=== PATIENT | male | born 1950 | race Asian ===

== ENCOUNTER 2016-12-28 17:50 | Emergency (ER) | payer OTHER ==
[~2016-12-28] VITALS: Ht 182.9 cm; Wt 89.0 kg
[~2016-12-28 17:50] MED LIST: DIGO250T PO; WARF2TAB PO; WARF3TAB PO
[2016-12-28 17:57] VITALS: Ht 182.9 cm; Wt 89.0 kg
[2016-12-28] MEDS ORDERED: SOD CHLORIDE 0.9% 1,000 ML IV STA (21:28)
[2016-12-28] MEDS ORDERED: ONDANSETRON 4 MG INJ IV STA (21:28)
[2016-12-28] MEDS ORDERED: morphine 4 MG/ML VIAL IV STA (21:28)
[2016-12-28 21:53] LABS: ADD SCAN DIFF NO
[2016-12-28 22:01] LABS: BASOPHILS % 0.3 % (0.0-2.0); EOSINOPHILS # 0.3 10^3/ul (0.0-0.5); EOSINOPHILS % 2.4 % (0.0-7.0); HEMATOCRIT 38.9 % (42.0-52.0); HEMOGLOBIN 13.6 g/dl (14.0-18.0); LYMPHOCYTES % 29.6 % (15.0-51.0); MEAN CORPUSCULAR HEMOGLOBIN 35.8 pg (29.0-33.0); MEAN CORPUSCULAR VOLUME 102.4 fl (82.0-101.0); MEAN PLATELET VOLUME 9.9 fl (7.4-10.4); MONOCYTE # 0.6 10^3/ul (0.3-0.9); NEUTROPHIL # 6.3 10^3/ul (1.6-7.5); NEUTROPHILS % 61.5 % (39.0-77.0); PLATELET COUNT 190 10^3/UL (140-415); WHITE BLOOD COUNT 10.2 10^3/ul (4.8-10.8)
[2016-12-28 22:14] LABS: ALANINE AMINOTRANSFERASE 44 IU/L (13-69); ALBUMIN 4.9 g/dl (3.3-4.9); ALBUMIN/GLOBULIN RATIO 1.68; ALKALINE PHOSPHATASE 60 IU/L (42-121); ANION GAP 15 (8-16); ASPARTATE AMINO TRANSFERASE 27 IU/L (15-46); BILIRUBIN,INDIRECT 0.6 mg/dl (0-1.1); BILIRUBIN,TOTAL 0.6 mg/dl (0.2-1.3); BLOOD UREA NITROGEN 12 mg/dl (7-20); CALCIUM 9.9 mg/dl (8.4-10.2); CARBON DIOXIDE 27 mmol/L (21-31); CHLORIDE 101 mmol/L (97-110); CREATININE 0.96 mg/dl (0.61-1.24); GLUCOSE 110 mg/dl (70-220); POTASSIUM 3.9 mmol/L (3.5-5.1); SODIUM 139 mmol/L (135-144); TOTAL PROTEIN 7.8 g/dl (6.1-8.1)
--- NOTE | 2016-12-28 22:20 | RADRPT ---
PROCEDURE: CT abdomen and pelvis without contrast. CLINICAL INDICATION: Right lower quadrant abdominal pain TECHNIQUE: CT scan of the abdomen and pelvis without contrast was performed and is reconstructed a t 2.5 mm contiguous axial intervals from the dome of the diaphragm to the inferior pubic rami.. The patient was scanned without intravenous contrast. Sagittal and coronal reformatted images were obt ained from the axial source images. The calculated radiation dose measures 401 mGy centimeters. The CTDI measures 7 mGy. COMPARISON: None. FINDINGS: The lung bases are clear of any infiltrate or nodule. No effusion is seen. There are coronary arter y calcifications. The liver is of normal size, contour and attenuation with no mass or intrahepatic ductal dilatation. Gallbladder has been removed and there is presumed physiologic extrahepatic bile duct dilatation. No common bile duct stones are seen. No splenic, adrenal or pancreatic abnormalities present. Kidneys are of normal size and contour. No hydronephrosis, calculus or masses seen. Ureters are o f normal course and caliber with no stone. No bladder mass or stone is present. Prostate and semina l vesicles are normal. There is no aneurysm. Calcification is seen in the wall of the aorta and the iliac arteries. No ad enopathy is present. No bowel mass or obstruction is present. The appendix is normal. No phlegmon, ascites or pneumop eritoneum is visualized. There is L4-L5 degenerative disk disease. IMPRESSION: No evidence of urolithiasis, obstructive uropathy, diverticulitis or appendicitis. Vascular calcifications. Post cholecystectomy with presumed physiologic extrahepatic bile duct dilatation. Correlation with serum bilirubin levels could be performed for more definitive diagnosis if clinically indicated. L4-L5 degenerative disk disease. .Clark Nolasco MD, Date Time Electronically viewed and signed by .Clark Nolasco MD, on 12/28/2016 22:20 .A/
[2016-12-28 22:24] LABS: INR 0.98; PARTIAL THROMBOPLASTIN TIME 28.6 Sec (25.0-35.0)
[2016-12-28 22:27] LABS: TROPONIN-I < 0.012 ng/ml (0.00-0.12)
--- NOTE | 2016-12-28 23:08 | RADRPT ---
PROCEDURE: XR Chest. CLINICAL INDICATION: Abdominal pain. TECHNIQUE: Single frontal view of the chest. COMPARISON: 10/24/2013. FINDINGS: The cardiomediastinal silhouette is within normal limits. Changes of centrolobular emphysema. The l ungs are otherwise clear. No signs of pleural fluid or pneumothorax are seen. The osseous structures and soft tissues are unremarkable. IMPRESSION: No evidence for active cardiopulmonary disease. RPTAT: [facility] Physician Lakisha Date Time Electronically viewed and signed by Physician Lakisha on 12/28/2016 23:07 RS/
--- NOTE | 2016-12-28 23:20 | ERD ---
ER Documentation Chief Complaint Date/Time DATE: 12/28/16 TIME: 23:16 Chief Complaint AP SINCE THIS AM HPI 66-year-old male with a history of an arrhythmia on digoxin complaining of epigastric pain since this morning. It started after he drinks a glass of water. He had one episode of nonbloody and nonbilious vomiting. The pain is in his epigastrium, sharp, radiating to his back. He denies any hematemesis, history of hematochezia or melena. He had a normal bowel movement today. He denies any associated fevers or chills. He denies any chest pain or shortness of breath. He states he was here with similar symptoms about 4 years ago. He does not know what his diagnosis was. ROS All systems reviewed and are negative except as per history of present illness. Medications Home Meds Active Scripts Famotidine* (Pepcid*) 20 Mg Tablet, 20 MG PO BID for 4 Days, TAB Prov:MARKIE LEON MD 12/28/16 Metoclopramide* (Reglan*) 10 Mg Tablet, 10 MG PO Q6 Y for NAUSEA AND/OR VOMITING , #10 TAB Prov:MARKIE LEON MD 12/28/16 Reported Medications Warfarin Sodium* (Coumadin*) 3 Mg Tablet, 3 MG PO DAILY, TAB 10/25/13 Warfarin Sodium* (Coumadin*) 2 Mg Tablet, 2 MG PO, TAB 10/25/13 Warfarin Sodium* (Coumadin*) 2 Mg Tablet, 2.5 MG PO DAILY, TAB 10/25/13 Digoxin* (Digoxin*) 0.25 Mg Tab, 0.25 MG PO DAILY, TAB 10/25/13 Allergies Allergies: Coded Allergies: No Known Allergy (Unverified , 10/25/13) PMhx/Soc History of Surgery: Yes (BILATERAL CATARACT REMOVAL, CHOLYCYSTECTOMY) Anesthesia Reaction: No Hx Neurological Disorder: No Hx Respiratory Disorders: No Hx Cardiac Disorders: Yes (ATRIAL FLUTTER) Hx Psychiatric Problems: No Hx Miscellaneous Medical Probl: No Hx Alcohol Use: Yes (OCCASIONALLY) Hx Substance Use: No Hx Tobacco Use: Yes Smoking Status: Former smoker FmHx Family History: No diabetes Physical Exam Vitals Vital Signs Date Time Temp Pulse Resp B/P Pulse Ox O2 Delivery O2 Flow Rate FiO2 7/6/17 00:11 69 18 140/87 97 Room Air 12/28/16 23:25 65 15 126/73 98 Room Air 12/28/16 21:25 61 14 133/67 100 Room Air 12/28/16 17:57 98.1 78 18 157/78 99 Physical Exam Const: Well-appearing, no apparent distress Head: Atraumatic Eyes: Normal Conjunctiva ENT: Normal External Ears, Nose and Mouth. Neck: Full range of motion..~ No meningismus. Resp: Clear to auscultation bilaterally Cardio: Irregularly irregular rhythm with normal rate , no murmurs. 2+ distal pulses Abd: Soft, minimal suprapubic tenderness, no other tenderness, no rebound or guarding, non distended. Normal bowel sounds Skin: No petechiae or rashes Back: No midline or flank tenderness Ext: No cyanosis, or edema Neur: Awake and alert Psych: Normal Mood and Affect Result Diagram: 12/28/16214912/28/162149 Results 24 hrs Laboratory Tests Test 12/28/16 21:50 12/28/16 23:35 White Blood Count 10.210^3/ul Red Blood Count 3.8010^6/ul Hemoglobin 13.6g/dl Hematocrit 38.9% Mean Corpuscular Volume 102.4fl Mean Corpuscular Hemoglobin 35.8pg Mean Corpuscular Hemoglobin Concent 35.0g/dl Red Cell Distribution Width 12.0% Platelet Count 73088^3/UL Mean Platelet Volume 9.9fl Neutrophils % 61.5% Lymphocytes % 29.6% Monocytes % 6.0% Eosinophils % 2.4% Basophils % 0.3% Nucleated Red Blood Cells % 0.0/100WBC Neutrophils # 6.310^3/ul Lymphocytes # 3.010^3/ul Monocytes # 0.610^3/ul Eosinophils # 0.310^3/ul Basophils # 0.010^3/ul Nucleated Red Blood Cells # 0.010^3/ul Prothrombin Time 13.0Sec Prothrombin Time Ratio 1.0 INR International Normalized Ratio 0.98 Activated Partial Thromboplast Time 28.6Sec Sodium Level 139mmol/L Potassium Level 3.9mmol/L Chloride Level 101mmol/L Carbon Dioxide Level 27mmol/L Anion Gap 15 Blood Urea Nitrogen 12mg/dl Creatinine 0.96mg/dl Glucose Level 110mg/dl Calcium Level 9.9mg/dl Total Bilirubin 0.6mg/dl Direct Bilirubin 0.00mg/dl Indirect Bilirubin 0.6mg/dl Aspartate Amino Transf (AST/SGOT) 27IU/L Alanine Aminotransferase (ALT/SGPT) 44IU/L Alkaline Phosphatase 60IU/L Troponin I < 0.012ng/ml Total Protein 7.8g/dl Albumin 4.9g/dl Globulin 2.90g/dl Albumin/Globulin Ratio 1.68 Lipase 37U/L Bedside Urine pH (LAB) 5.0 Bedside Urine Protein (LAB) Negative Bedside Urine Glucose (UA) Negative Bedside Urine Ketones (LAB) Negative Bedside Urine Blood Negative Bedside Urine Nitrite (LAB) Negative Bedside Urine Leukocyte Esterase (L Negative Current Medications Medications (Trade) Dose Ordered Sig/Ludmila Route PRN Reason Start Time Stop Time Status Last Admin Dose Admin Sodium Chloride (NS) 1,000 ml @ 1,000 mls/hr Q1H STAT IV 12/28/16 21:28 12/28/16 22:27 DC 12/28/16 22:45 Morphine Sulfate (morphine) 4 mg ONCE STAT IV 12/28/16 21:28 12/28/16 21:30 DC 12/28/16 22:45 Ondansetron HCl (Zofran Inj) 4 mg ONCE STAT IV 12/28/16 21:28 12/28/16 21:30 DC 12/28/16 22:45 Procedures/MDM EMERGENT LABS AND DIAGNOSTIC STUDIES: Lab Results above were reviewed and interpreted by me. CBC: no anemia or evidence of infection CMP: No evidence of electrolyte abnormality, renal failure, hypoglycemia, liver failure, or biliary obstruction Lipase: no evidence of pancreatitis Troponin within normal limits UA: no evidence of infection 12-lead EKG was interpreted by Filippo Leon MD: A. fib with ventricular rate of 64 beats per minute Incomplete right bundle branch block No acute ST or T wave changes suggestive of acute ischemia or STEMI. Radiology Results as interpreted by Radiology below were reviewed by Carolyne Leon MD: Chest x-ray shows no acute abnormalities CT abdomen and pelvis without contrast shows no acute abnormalities Initial Nursing notes reviewed. Previous Medical Records requested via the Electronic Health Record. EMERGENCY DEPARTMENT COURSE / MEDICAL DECISION MAKING: Patient is presenting with epigastric pain with stable vital signs. Differential includes but is not limited to biliary colic, biliary obstruction, acute cholecystitis, pancreatitis, hepatitis, lower lobe pneumonia, gastritis, colitis, cardiac pathology, aortic dissection, ureterolithiasis, pyelonephritis. Labs were ordered to evaluate for above and were normal. Chest Xray ordered to evaluate for pneumonia and was read as normal by radiology. CT of the abdomen/pelvis was ordered and showed no acute pathology. Patient was given antiemetics and pain medications with significant relief of his symptoms. He was tolerating fluids by mouth prior to discharge. I do not suspect digoxin toxicity. I think he is stable for discharge at this time with continued outpatient follow-up. I discussed with him that he may have gastritis versus a peptic ulcer. Follow-up with PCP was recommended in 1-2 days. Return precautions were discussed. He was sent home with a prescription for Reglan and Pepcid. Patient's blood pressure was elevated (>120/80) but appears stable without evidence of hypertensive emergency or urgency. The patient was counseled about the risks of hypertension and urged to pursue outpatient monitoring and therapy within a week with their primary care physician. Departure Diagnosis: Primary Impression: Epigastric abdominal pain Condition: Stable MARKIE LEON MD Dec 28, 2016 23:20
[2016-12-28 23:32] LABS: URINE BLOOD (Dip) POC Negative (NEGATIVE)
[2016-12-28] MEDS ORDERED: FAMO-18 PO (23:33)
[2016-12-28] MEDS ORDERED: METO10TA92 PO (23:33)
[2016-12-29 00:11] VITALS: BP 140/87; PULSE 69; RESP 18
== END 2016-12-29 00:11 | disposition home or self-care (01) ==
LOC: E/R 17:50
DX: R10.13 Epigastric pain (principal); R11.10 Vomiting, unspecified; Z79.01 Long term (current) use of anticoagulants; Z87.891 Personal history of nicotine dependence
CPT/HCPCS: 36415; 71010; 74176; 80053; 81003; 83690; 84484; 85025; 85610; 85730; 93005; 96374; 96375; 99285; J2270; J2405; J7030